=== PATIENT | male | born 1955 | race Caucasian/White ===

== ENCOUNTER 2021-11-16 10:18 | Inpatient (IN) | payer BC ==
[2021-11-16] MEDS ORDERED: DICYCLOMINE HCL 10 MG CAPSULE PO PRN (11:35)
[2021-11-16] MEDS ORDERED: MAGNESIUM CITRATE 300 ML BOTTLE PO PRN (11:35)
[2021-11-16] MEDS ORDERED: ACETAMINOPHEN 325 MG TABLET (FP) PO PRN ×2 (11:35)
[2021-11-16] MEDS ORDERED: BISMUTH SUBSALICYLATE 524 MG/30 ML PO PRN (11:35)
[2021-11-16] MEDS ORDERED: BENZOCAINE/MENTHOL (CHLORASEPTIC ) LOZENGE MM PRN (11:35)
[2021-11-16] MEDS ORDERED: MAGNESIUM HYDROX 2400MG/30ML ORAL SUSPENSION 30 ML CUP PO PRN (11:35)
[2021-11-16] MEDS ORDERED: ONDANSETRON *ODT* 4 MG TABLET SL PRN (11:35)
[2021-11-16] MEDS ORDERED: IBUPROFEN 400 MG TABLET (FP) PO PRN (11:35)
[2021-11-16] MEDS ORDERED: LOPERAMIDE HCL 2 MG CAPSULE PO PRN (11:35)
[2021-11-16] MEDS ORDERED: LORazepam 1 MG TABLET PO PRN (11:35)
[2021-11-16] MEDS ORDERED: METHOCARBAMOL 500 MG TABLET PO PRN (11:35)
[2021-11-16] MEDS ORDERED: MAG HYDROX/AL HYDROX/SIMETH 30 ML UNIT-DOSE CUP PO PRN (11:35)
[2021-11-16] MEDS ORDERED: cloNIDine HCL 0.1 MG TABLET PO ONE (12:00)
[2021-11-16 12:01] VITALS: BMI 24.5
[2021-11-16] MEDS ORDERED: cloNIDine HCL 0.1 MG TABLET ONE (12:11)
[2021-11-16] MEDS ORDERED: LOPERAMIDE HCL 2 MG PO PRN (13:17)
[2021-11-16] MEDS: hydrOXYzine PAMOATE 25 MG CAPSULE (FP) PO SCH ×3 (13:52→22:15)
[2021-11-16] MEDS: PRENATAL VITAMINS W/ FOLIC ACID TABLET (FP) PO SCH (13:58)
[2021-11-16] MEDS: LORazepam 2 MG TABLET PO SCH ×2 (18:26→22:15)
[2021-11-16] MEDS: metFORMIN HCL 500 MG TABLET (FP) PO SCH (18:27)
[2021-11-16] MEDS: levETIRAcetam 500 MG TABLET (FP) PO SCH (22:15)
[2021-11-16] MEDS: THIAMINE HCL 100 MG TABLET (FP) PO SCH (22:15)
[2021-11-16] MEDS: MELATONIN 5 MG TABLETS PO SCH (22:16)
[2021-11-16] MEDS ORDERED: METOPROLOL TARTRATE 50 MG TABLET (FP) PO ONE (22:55)
[2021-11-17] MEDS: hydrOXYzine PAMOATE 25 MG CAPSULE (FP) PO SCH ×5 (05:46→23:07)
[2021-11-17] MEDS: LORazepam 2 MG TABLET PO SCH ×4 (05:46→23:08)
[2021-11-17] MEDS: metFORMIN HCL 500 MG TABLET (FP) PO SCH ×2 (07:21→17:48)
[2021-11-17] MEDS: PRENATAL VITAMINS W/ FOLIC ACID TABLET (FP) PO SCH (10:46)
[2021-11-17] MEDS: levETIRAcetam 500 MG TABLET (FP) PO SCH ×2 (10:47→23:04)
[2021-11-17] MEDS: ENALAPRIL MALEATE 5 MG TABLET PO SCH (10:47)
[2021-11-17 11:07] LABS: HEMATOCRIT 37.7 % (35.4-49); HEMOGLOBIN 12.7 GM/dL (11.7-16.9); MCH 32.9 pg (25.7-33.7); MCHC 33.6 g/dl (32.0-35.9); MEAN PLT VOLUME 8.2 fl (7.5-11.1); PLATELET COUNT 110 10^3/uL (134-434); RBC 3.84 M/mm3 (4.00-5.60); RDW 19.9 % (11.9-15.9); WHITE BLOOD COUNT 5.1 K/mm3 (4.0-10.0)
[2021-11-17 11:21] LABS: CALCIUM 9.7 mg/dL (8.5-10.1)
[2021-11-17 11:22] LABS: BLOOD UREA NITROGEN 21.5 mg/dL (7-18)
[2021-11-17 11:26] LABS: BILIRUBIN,TOTAL 1.6 mg/dL (0.2-1); TOT PROT 8.5 g/dl (6.4-8.2)
[2021-11-17] MEDS: THIAMINE HCL 100 MG TABLET (FP) PO SCH (23:05)
[2021-11-17] MEDS: MELATONIN 5 MG TABLETS PO SCH (23:07)
[2021-11-18] MEDS: LORazepam 1 MG TABLET PO SCH ×5 (05:11→22:00)
[2021-11-18] MEDS: hydrOXYzine PAMOATE 25 MG CAPSULE (FP) PO SCH ×5 (05:11→21:57)
[2021-11-18] MEDS: metFORMIN HCL 500 MG TABLET (FP) PO SCH ×2 (06:23→17:56)
[2021-11-18] MEDS: levETIRAcetam 500 MG TABLET (FP) PO SCH ×2 (10:52→21:54)
[2021-11-18] MEDS: ENALAPRIL MALEATE 5 MG TABLET PO SCH (10:52)
[2021-11-18] MEDS: PRENATAL VITAMINS W/ FOLIC ACID TABLET (FP) PO SCH (10:52)
[2021-11-18 20:09] LABS: SARS-CoV-2 NAA Not Detected (Not Detected)
[2021-11-18] MEDS: THIAMINE HCL 100 MG TABLET (FP) PO SCH (21:54)
[2021-11-18] MEDS: MELATONIN 5 MG TABLETS PO SCH (21:57)
[2021-11-19] MEDS ORDERED: LORazepam 0.5 MG TABLET PO PRN
[2021-11-19] MEDS: LORazepam 0.5 MG TABLET PO SCH ×4 (05:41→22:44)
[2021-11-19] MEDS: hydrOXYzine PAMOATE 25 MG CAPSULE (FP) PO SCH ×5 (05:42→22:45)
[2021-11-19] MEDS: metFORMIN HCL 500 MG TABLET (FP) PO SCH ×2 (06:19→17:33)
[2021-11-19] MEDS: PRENATAL VITAMINS W/ FOLIC ACID TABLET (FP) PO SCH (10:32)
[2021-11-19] MEDS: ENALAPRIL MALEATE 5 MG TABLET PO SCH (10:35)
[2021-11-19] MEDS: levETIRAcetam 500 MG TABLET (FP) PO SCH ×2 (10:35→22:43)
[2021-11-19] MEDS: THIAMINE HCL 100 MG TABLET (FP) PO SCH (22:44)
[2021-11-19] MEDS: MELATONIN 5 MG TABLETS PO SCH (22:44)
[2021-11-20] MEDS ORDERED: LORazepam 0.5 MG TABLET PO ONE (05:00)
[2021-11-20] MEDS: hydrOXYzine PAMOATE 25 MG CAPSULE (FP) PO SCH ×2 (05:33→09:55)
[2021-11-20] MEDS: metFORMIN HCL 500 MG TABLET (FP) PO SCH (07:07)
[2021-11-20 09:36] VITALS: BP 126/84; PULSE 79; TEMP 96.9
[2021-11-20] MEDS: PRENATAL VITAMINS W/ FOLIC ACID TABLET (FP) PO SCH (09:54)
[2021-11-20] MEDS: levETIRAcetam 500 MG TABLET (FP) PO SCH (09:54)
[2021-11-20] MEDS: ENALAPRIL MALEATE 5 MG TABLET PO SCH (09:55)
== END 2021-11-20 10:49 | disposition home or self-care (01) | DRG 775 ==
LOC: YASAS 10:18 → Y6N 13:06
PROVIDERS: ADMIT Allergy & Immunology; ATTEND Surgery
PROC: HZ2ZZZZ Detoxification Services for Substance Abuse Treatment (ICD-10-PCS; principal; 2021-11-16)
DX: F10.230 Alcohol dependence with withdrawal, uncomplicated (principal); F41.8 Other specified anxiety disorders; F32.A Depression, unspecified; G40.909 Epilepsy, unspecified, not intractable, without status epilepticus; I10 Essential (primary) hypertension; E11.9 Type 2 diabetes mellitus without complications; Z79.84 Long term (current) use of oral hypoglycemic drugs; Z87.891 Personal history of nicotine dependence; W19.XXXA Unspecified fall, initial encounter; Y92.238 Other place in hospital as the place of occurrence of the external cause
CPT/HCPCS: 36415; 80053; 82962; 85027; 86780; 93005; 93010; C9803-CS; J0735; U0003; U0005